=== PATIENT | female | born 1990 | race Caucasian/White ===

== ENCOUNTER 2016-11-06 18:32 | Emergency (ER) | payer BC ==
--- NOTE | 2016-11-06 18:12 | CT ---
EXAMINATION TYPE: CT abdomen pelvis wo con DATE OF EXAM: 11/06/2016 5:43 PM COMPARISON: NONE HISTORY: CT DLP: mGycm Automated exposure control for dose reduction was used. TECHNIQUE: Helical acquisition of images was performed from the lung bases through the pelvis. FINDINGS: Lung bases are clear of consolidation. There is some focal atelectasis in the left lower lobe. There is no pleural effusion. Liver spleen pancreas appear normal. Are clips from cholecystectomy. Bile ducts are not dilated. Ther e is no adrenal mass. Kidneys have normal size. There is mild right-sided hydronephrosis and hydroure ter. There is evidence of a 6 mm calculus in the distal right ureter. Bladder is almost empty. There are multiple bilateral renal calcifications and more on the right side. These measure up to 4 m m. There is no retroperitoneal adenopathy. There is no ascites. Appendix is not seen. There is no sign o f appendicitis. There is no evidence of a pelvic mass. I see no intestinal wall thickening. There are no dilated loops. I see no bony destructive process. There are apparent surgical clips in the right psoas region that could be from appendectomy. IMPRESSION: THERE IS RIGHT-SIDED HYDRONEPHROSIS AND HYDROURETER WITH A SMALL OBSTRUCTING CALCULUS IN THE DISTAL R IGHT URETER. MULTIPLE BILATERAL RENAL CALCIFICATIONS.
[2016-11-06 18:46] VITALS: RESP 18
[2016-11-06] MEDS ORDERED: SODIUM CHLORIDE 0.9% 1,000 ML IV ONE (19:03)
[2016-11-06] MEDS ORDERED: KETOROLAC 30 MG/ML 1 ML VIAL IVP STA (19:03)
--- NOTE | 2016-11-06 19:10 | ED ---
Abdominal Pain HPI - General Chief Complaint: Abdominal Pain Time Seen by Provider: 11/06/16 18:50 Source: patient, RN notes reviewed Mode of arrival: ambulatory Limitations: no limitations - History of Present Illness Initial Comments: Patient is a 26-year-old female with chief complaint of 1 afternoon of right flank pain. Patient reports that she's never had pain like this before. She saw her primary care doctor in the ordered a CT abdomen and pelvis. With it, results she had a positive small obstructing kidney stone in the right ureter instructed her to come to the emergency department. Patient complaining of pain and some nausea. She denies any fever or chills. She denies some blood in her urine. Patient states that she has a past medical history of millimeters disease, abscesses, blood clots. She denies any other associated symptoms aside and sudden onset of right flank pain. - Related Data Home Medications Medication Instructions Recorded Confirmed Citalopram Hydrobromide [CeleXA] 10 mg PO HS 11/06/16 11/06/16 Dicyclomine [Bentyl] 20 mg PO QID 11/06/16 11/06/16 Ibuprofen [Motrin] 600 mg PO Q6HR PRN 11/06/16 11/06/16 Previous Rx's Medication Instructions Recorded Ciprofloxacin HCl [Cipro] 500 mg PO Q12HR #10 tablet 11/06/16 HYDROcodone/APAP 10-325MG [[place] 1 tab PO Q6H PRN #15 tab 11/06/16 10-325] Ketorolac [Toradol] 10 mg PO Q6HR #15 tab 11/06/16 Ondansetron Odt [Zofran Odt] 4 mg PO Q8HR PRN #12 tab 11/06/16 Allergies Allergy/AdvReac Type Severity Reaction Status Date / Time No Known Allergies Allergy Verified 11/06/16 19:06 Review of Systems ROS Statement: Those systems with pertinent positive or pertinent negative responses have been documented in the HPI. ROS Other: All systems not noted in ROS Statement are negative. Past Medical History Past Medical History: Deep Vein Thrombosis (DVT) History of Any Multi-Drug Resistant Organisms: None Reported Past Surgical History: Appendectomy, Cholecystectomy Past Psychological History: Anxiety Smoking Status: Never smoker Past Alcohol Use History: None Reported Past Drug Use History: None Reported General Exam - General Exam Comments Initial Comments: Well-appearing 26-year-old female. No acute distress. Limitations: no limitations General appearance: alert, in no apparent distress Head exam: Present: atraumatic, normocephalic, normal inspection Eye exam: Present: normal appearance, PERRL, EOMI. Absent: scleral icterus, conjunctival injection, periorbital swelling ENT exam: Present: normal exam, mucous membranes moist Neck exam: Present: normal inspection. Absent: tenderness, meningismus, lymphadenopathy Respiratory exam: Present: normal lung sounds bilaterally. Absent: respiratory distress, wheezes, rales, rhonchi, stridor Cardiovascular Exam: Present: regular rate, normal rhythm, normal heart sounds. Absent: systolic murmur, diastolic murmur, rubs, gallop, clicks GI/Abdominal exam: Present: soft, normal bowel sounds. Absent: distended, tenderness, guarding, rebound, rigid Extremities exam: Present: normal inspection, full ROM, normal capillary refill. Absent: tenderness, pedal edema, joint swelling, calf tenderness Back exam: Present: normal inspection, CVA tenderness (R) Neurological exam: Present: alert, oriented X3, CN II-XII intact Psychiatric exam: Present: normal affect, normal mood Skin exam: Present: warm, dry, intact, normal color. Absent: rash Course Vital Signs 11/06/16 11/06/16 18:43 20:29 Temperature 99.2 F 98.9 F Pulse Rate 83 89 Respiratory 18 18 Rate Blood Pressure 133/75 117/70 O2 Sat by Pulse 99 100 Oximetry Medical Decision Making - Medical Decision Making Patient is a 26-year-old female with chief complaint of right flank pain for approximately one day. She was given an outpatient CT and did reveal nephrolithiasis and hydroureter. Patient was then sent to the emergency department to inform her of her results. Patient was given IV Toradol and reports that her pain is much better. She has no sense severe infection and urine was significant for large amount of red blood cells but no white blood cells. Patient will be discharged at this time with pain medications, nausea medication and Cipro antibiotic. Patient advised to follow-up with primary care provider on Wednesday. Patient is agrees with treatment plan states she will comply. - Lab Data Result diagrams: 11/06/16 19:25 11/06/16 19:25 Lab Results 11/06/16 11/06/16 11/06/16 Range/Units 19:25 19:25 19:25 WBC 12.3 H (3.8-10.6) k/uL RBC 4.12 (3.80-5.40) m/uL Hgb 13.0 (11.4-16.0) gm/dL Hct 37.5 (34.0-46.0) % MCV 90.9 (80.0-100.0) fL MCH 31.5 (25.0-35.0) pg MCHC 34.6 (31.0-37.0) g/dL RDW 12.7 (11.5-15.5) % Plt Count 269 (150-450) k/uL Neutrophils % 85 % Lymphocytes % 9 % Monocytes % 4 % Eosinophils % 0 % Basophils % 0 % Neutrophils # 10.4 H (1.3-7.7) k/uL Lymphocytes # 1.1 (1.0-4.8) k/uL Monocytes # 0.5 (0-1.0) k/uL Eosinophils # 0.0 (0-0.7) k/uL Basophils # 0.0 (0-0.2) k/uL Sodium 140 (137-145) mmol/L Potassium 4.0 (3.5-5.1) mmol/L Chloride 105 (98-107) mmol/L Carbon Dioxide 22 (22-30) mmol/L Anion Gap 13 mmol/L BUN 16 (7-17) mg/dL Creatinine 0.86 (0.52-1.04) mg/dL Est GFR (MDRD) Af Amer >60 (>60 ml/min/1.73 sqM) Est GFR (MDRD) Non-Af >60 (>60 ml/min/1.73 sqM) Glucose 96 (74-99) mg/dL Calcium 9.2 (8.4-10.2) mg/dL Urine Color Red Urine Appearance Turbid H (Clear) Urine pH 5.5 (5.0-8.0) Ur Specific [place] 1.018 (1.001-1.035) Urine Protein 1+ H (Negative) Urine Glucose (UA) Negative (Negative) Urine Ketones Trace H (Negative) Urine Blood Large H (Negative) Urine Nitrite Negative (Negative) Urine Bilirubin Negative (Negative) Urine Urobilinogen <2.0 (<2.0) mg/dL Ur Leukocyte Esterase Negative (Negative) Urine RBC 142 H (0-5) /hpf Ur Squamous Epith Cells 3 (0-4) /hpf Urine Mucus Moderate H (None) /hpf - Radiology Data Radiology results: report reviewed CT abdomen and pelvis does show right-sided for ureter with mild hydronephrosis. Multiple bilateral renal stones. Disposition Clinical Impression: Ureteral stone with hydronephrosis Disposition: HOME SELF-CARE Condition: Good Instructions: Kidney Stones (ED) Additional Instructions: Advised to follow up with urologist. Patient needs to return to emergency room if any worsening signs or symptoms occur. Follow-up with primary care provider within the next 2-3 days. Take prescribed medications as directed. Prescriptions: Ciprofloxacin HCl [Cipro] 500 mg PO Q12HR #10 tablet HYDROcodone/APAP 10-325MG [[place] 10-325] 1 tab PO Q6H PRN #15 tab PRN Reason: Pain Ketorolac [Toradol] 10 mg PO Q6HR #15 tab Ondansetron Odt [Zofran Odt] 4 mg PO Q8HR PRN #12 tab PRN Reason: Nausea Referrals: Andrés Shannon DO [Primary Care Provider] - 1-2 days Time of Disposition: 20:13
[2016-11-06 19:36] LABS: Basophils % (A) 0 %; CH 31.5; CHCM 34.8; Eosinophils % (A) 0 %; HCT 37.5 % (34.0-46.0); Luc # (Auto) 0.18; Luc % (Auto) 1; Lymphocytes # (A) 1.1 k/uL (1.0-4.8); Lymphocytes % (A) 9 %; MCH 31.5 pg (25.0-35.0); MCHC 34.6 g/dL (31.0-37.0); MCV 90.9 fL (80.0-100.0); Mean Platelet Volume 7.9; Monocytes # (A) 0.5 k/uL (0-1.0); Monocytes % (A) 4 %; Neutrophils # (A) 10.4 k/uL (1.3-7.7); Neutrophils % (A) 85 %; RBC 4.12 m/uL (3.80-5.40); RDW 12.7 % (11.5-15.5); WBC 12.3 k/uL (3.8-10.6); WBC (Perox) 12.12
[2016-11-06 19:39] LABS: Appearance,Urine Turbid (Clear); Bilirubin,Urine Negative (Negative); Glucose,Urine (UA) Negative (Negative); Ketones,Urine Trace (Negative); Leukocyte Esterase,Urine Negative (Negative); Mucus,Urine Moderate /hpf; Nitrite,Urine Negative (Negative); PH, Urine 5.5 (5.0-8.0); Particle Count 80678; Protein,Urine 1+ (Negative); RBC,Urine 142 /hpf (0-5); Specific Gravity,Urine 1.018 (1.001-1.035); Squamous Epithelial Cell,Urine 3 /hpf (0-4); UA Billing (MACRO vs. MICRO) MICRO; Urobilinogen,Urine <2.0 mg/dL (<2.0)
[2016-11-06 19:44] LABS: Anion Gap 13 mmol/L; Blood Urea Nitrogen 16 mg/dL (7-17); Calcium 9.2 mg/dL (8.4-10.2); Carbon Dioxide 22 mmol/L (22-30); Chloride 105 mmol/L (98-107); Glucose 96 mg/dL (74-99); Non-African American GFR(MDRD) >60 (>60 ml/min/1.73 sqM); Sodium 140 mmol/L (137-145)
[2016-11-06] MEDS ORDERED: ONDANSETRON 4 MG ODT STARTER PACK 2 TAB BTL PO STA (20:11)
[2016-11-06 20:34] VITALS: BP 117/70; PULSE 89; TEMP 98.9
== END 2016-11-06 20:37 | disposition home or self-care (01) ==
LOC: EC 18:32
DX: N13.2 Hydronephrosis with renal and ureteral calculous obstruction (principal); F41.9 Anxiety disorder, unspecified; Z90.49 Acquired absence of other specified parts of digestive tract; Z79.899 Other long term (current) drug therapy
CPT/HCPCS: 99284 ×2; 96374 ×2; 96361 ×2; 36415; 80048; 85025; 81001; 74176; J1885; S0119

== ENCOUNTER → 2019-07-12 | Outpatient (CLI) | payer BC ==
--- NOTE | 2019-07-12 09:20 | US ---
EXAMINATION TYPE: US pelvic complete DATE OF EXAM: 07/12/2019 COMPARISON: CT 2017 CLINICAL HISTORY: N76.1 Subacute and chronic vaginitis, R10.2 Pelvic. Intermittent pelvic pain x coup le months, abnormal discharge, 0 TECHNIQUE: . Transabdominal sonographic images of the pelvis were acquired. Date of LMP: 06/25/2019 EXAM MEASUREMENTS: Uterus: 8.3 x 3.1 x 4.1 cm Endometrial Stripe: 0.5 cm Right Ovary: 2.7 x 1.8 x 2.3 cm Left Ovary: 3.5 x 1.8 x 3.3 cm 1. Uterus: anteverted 2. Endometrium: measures thin for patient's LMP 3. Right Ovary: wnl 4. Left Ovary: wnl 5. Bilateral Adnexa: wnl 6. Posterior cul-de-sac: wnl IMPRESSION: Thin endometrium for early secretory phase of menstrual cycle otherwise unremarkable stud y.
--- NOTE | 2019-07-12 09:27 | US ---
EXAMINATION TYPE: US abdomen complete DATE OF EXAM: 07/12/2019 COMPARISON: CT 2017, US 2012 CLINICAL HISTORY: N76.1 Subacute and chronic vaginitis, R10.2 Pelvic. Bilateral flank and back pain x couple months, history of cholecystectomy EXAM MEASUREMENTS: Liver Length: 13.7 cm CBD: 0.6 cm Spleen: 10.1 cm Right Kidney: 11.0 x 4.8 x 4.9 cm Left Kidney: 10.3 x 6.3 x 5.0 cm Pancreas: visualized portions wnl, limited by overlying midline bowel gas Liver: wnl Gallbladder: surgically absent Evidence for sonographic Briseno's sign: no CBD: visualized portions wnl, limited by overlying bowel gas Spleen: wnl Right Kidney: multiple small echogenic foci scattered throughout with largest measuring 0.4cm Left Kidney: multiple small echogenic foci scattered throughout with largest measuring 0.4cm Upper IVC: wnl Abd Aorta: wnl The visualized liver is slightly heterogeneous. The intrahepatic portion of the IVC and visualized a bdominal aorta are within normal limits. Gallbladder noted surgically absent. Common bile duct is un remarkable. The visualized portions of the pancreas are heterogeneous without suspicious mass or bryon lance dilatation. The spleen is unremarkable. Kidneys are symmetric and free of hydronephrosis. No r enal lesions are seen. IMPRESSION: Redemonstration bilateral nonobstructing renal calculi up to 4 mm in size on ultrasound w ithout hydronephrosis noted.
== END | disposition home or self-care (01) ==
LOC: RADUSWWP 06:56
PROVIDERS: ATTEND Family Medicine
DX: N20.0 Calculus of kidney (principal); N76.1 Subacute and chronic vaginitis; R10.2 Pelvic and perineal pain; R35.0 Frequency of micturition
CPT/HCPCS: 76700; 76856

== ENCOUNTER → 2020-02-16 | Outpatient (CLI) | payer BC ==
--- NOTE | 2020-02-17 12:06 | US ---
EXAMINATION TYPE: US kidneys/renal and bladder DATE OF EXAM: 02/16/2020 COMPARISON: 07/12/2019 ultrasound CLINICAL HISTORY: Hematuria R31.9. EXAM MEASUREMENTS: Right Kidney: 10.6 x 4.2 x 4.6 cm Left Kidney: 10.7 x 5.8 x 4.6 cm Right Kidney: scattered echogenic foci largest measuring 0.4cm Left Kidney: scattered echogenic foci largest measuring 0.4cm Bladder: wnl Bilateral Jets seen: Yes No significant interval changes IMPRESSION: 1. Bilateral nonobstructing renal stones.
== END | disposition home or self-care (01) ==
LOC: RADUSWWP 15:19
PROVIDERS: ATTEND Family Medicine
DX: N20.0 Calculus of kidney (principal); R10.2 Pelvic and perineal pain
CPT/HCPCS: 76770

== ENCOUNTER → 2020-02-21 | Outpatient (CLI) | payer BC ==
[2020-02-21 18:35] LABS: African American GFR (CKD) 137.6 (60.0-200.0); Anion Gap 9.6 mmol/L (4.00-12.00); BUN/Creat Ratio 17.14 Ratio (12.00-20.00); Calcium 9.5 mg/dL (8.7-10.3); Carbon Dioxide 25.4 mmol/L (21.6-31.8); Non-African American GFR(CKD) 118.7 (60.0-200.0); Potassium 4.3 mmol/L (3.5-5.5)
== END | disposition home or self-care (01) ==
LOC: LABWHC1 13:06
PROVIDERS: ATTEND Physician Assistant Medical
DX: R31.9 Hematuria, unspecified (principal)
CPT/HCPCS: 36415; 80048

== ENCOUNTER → 2020-09-18 | Outpatient (CLI) | payer BC ==
[2020-09-18 22:48] LABS: Basophils # (A) 0.03 X 10*3/uL (0.00-0.10); Basophils % (A) 0.4 %; Eosinophils # (A) 0.08 X 10*3/uL (0.04-0.35); HCT 40.8 % (37.2-46.3); HGB 13.5 g/dL (12.0-15.0); Lymphocytes # (A) 2.18 X 10*3/uL (0.90-5.00); Lymphocytes % (A) 26.4 %; MCH 30.4 pg (27.0-32.0); MCHC 33.1 g/dL (32.0-37.0); MCV 91.9 fL (80.0-97.0); Mean Platelet Volume 10.7 fL (9.5-12.2); Monocytes % (A) 7.3 %; Neutrophils # (A) 5.32 X 10*3/uL (1.80-7.70); Neutrophils % (A) 64.4 %; Platelet Count 336 X 10*3/uL (140-440); RBC 4.44 X 10*6/uL (4.10-5.20); RDW 12.2 % (11.5-14.5); WBC 8.25 X 10*3/uL (4.50-10.00)
[2020-09-19 00:27] LABS: Gliadin AB IgA, Deaminated NEGATIVE (NEGATIVE); Gliadin AB IgA, Unit 0.8 U/mL; Gliadin AB IgG, Deaminated NEGATIVE (NEGATIVE)
[2020-09-19 15:20] LABS: APTT 44 Sec(s) (<43); APTT 1:1 Mix 38 Sec(s) (<43); Dilute Russell Viper Venom 43 Sec(s) (<44)
== END | disposition home or self-care (01) ==
LOC: LABWHC1 16:00
PROVIDERS: ATTEND Allergy & Immunology
DX: K52.9 Noninfective gastroenteritis and colitis, unspecified (principal)
CPT/HCPCS: 36415; 82784; 83516; 85025; 85613; 85730; 85732; 86038

== ENCOUNTER → 2020-09-30 | Outpatient (CLI) | payer BC ==
--- NOTE | 2020-10-01 08:55 | US ---
EXAMINATION TYPE: US thyroid st tissue head/neck DATE OF EXAM: 09/30/2020 COMPARISON: NONE CLINICAL HISTORY: E04.9 NONTOXIC GOITER. sensation of something in throat, no previous nodules GLAND SIZE: Right Lobe: 5.2 x 1.3 x 1.3 cm Overall Parenchyma: homogenous Left Lobe: 4.1 x 1.1 x 1.5cm Overall Parenchyma: homogeneous Isthmus Thickness: 0.4 cm NODULES RIGHT: # of nodules measured on right: 0 LEFT: # of nodules measured on left: 0 ISTHMUS: # of nodules measured in the isthmus: 0 Bilateral neck scanned, no evidence of lymphadenopathy. IMPRESSION: 1. Normal thyroid ultrasound
== END | disposition home or self-care (01) ==
LOC: RADUSWWP 16:12
PROVIDERS: ATTEND Allergy & Immunology
DX: E04.9 Nontoxic goiter, unspecified (principal)
CPT/HCPCS: 76536

== ENCOUNTER 2023-02-15 18:59 | Emergency (ER) | payer SELFPAY ==
[2023-02-15 19:28] VITALS: TEMP 97.9
--- NOTE | 2023-02-15 19:41 | XR ---
EXAMINATION TYPE: XR ankle complete LT DATE OF EXAM: 02/15/2023 7:36 PM INDICATION: Patient age:Female; 32 years old; Reason for study: left ankle pain; COMPARISON: None TECHNIQUE: The left ankle is imaged in frontal, lateral and oblique projections. FINDINGS: There is no evidence of acute osseous pathology. The joint spaces are well-preserved without evidenc e of subluxation or dislocation. Kager's fat pad is intact. Mild soft tissue swelling around the ankl e. No radiopaque foreign bodies are identified. IMPRESSION: 1. No evidence of acute fracture. 2. Subcutaneous swelling around the ankle likely secondary to underlying soft tissue injury.
--- NOTE | 2023-02-15 21:10 | ED ---
General Adult HPI - General Chief complaint: Extremity Injury, Lower Stated complaint: L Ankle Injury Time Seen by Provider: 02/15/23 20:27 Source: patient Mode of arrival: wheelchair Limitations: no limitations - History of Present Illness Initial comments: 32-year-old female presents emergency department chief complaint of left ankle injury. Patient states that she was walking on her deck earlier today when she twisted her ankle. She states that she inverted the ankle and is having lateral ankle swelling and pain. She states that she has not tried to walk on it. She states that she did not take anything for pain. Patient has no significant past medical history. No known medication ALLERGIES. - Related Data Home Medications Medication Instructions Recorded Confirmed Citalopram Hydrobromide [CeleXA] 10 mg PO HS 11/06/16 11/06/16 Dicyclomine [Bentyl] 20 mg PO QID 11/06/16 11/06/16 Ibuprofen [Motrin] 600 mg PO Q6HR PRN 11/06/16 11/06/16 Previous Rx's Medication Instructions Recorded Ciprofloxacin HCl [Cipro] 500 mg PO Q12HR #10 tablet 11/06/16 HYDROcodone/APAP 10-325MG [[place] 1 tab PO Q6H PRN #15 tab 11/06/16 10-325] Ketorolac [Toradol] 10 mg PO Q6HR #15 tab 11/06/16 Ondansetron Odt [Zofran Odt] 4 mg PO Q8HR PRN #12 tab 11/06/16 Allergies Allergy/AdvReac Type Severity Reaction Status Date / Time No Known Allergies Allergy Verified 02/15/23 19:26 Review of Systems ROS Statement: Those systems with pertinent positive or pertinent negative responses have been documented in the HPI. ROS Other: All systems not noted in ROS Statement are negative. Past Medical History Past Medical History: Deep Vein Thrombosis (DVT) History of Any Multi-Drug Resistant Organisms: None Reported Past Surgical History: Appendectomy, Cholecystectomy Past Psychological History: Anxiety Smoking Status: Never smoker Past Alcohol Use History: Occasional Past Drug Use History: None Reported General Exam Limitations: no limitations General appearance: alert, in no apparent distress Head exam: Present: atraumatic, normocephalic, normal inspection Eye exam: Present: normal appearance ENT exam: Present: normal exam, mucous membranes moist Neck exam: Present: normal inspection. Absent: tenderness, meningismus, lymphadenopathy Respiratory exam: Present: normal lung sounds bilaterally. Absent: respiratory distress, wheezes, rales, rhonchi, stridor Cardiovascular Exam: Present: regular rate, normal rhythm, normal heart sounds. Absent: systolic murmur, diastolic murmur, rubs, gallop, clicks Extremities exam: Present: tenderness, normal capillary refill, other (DP and PT pulses 2+, lateral left ankle soft tissue swelling). Absent: full ROM (mild decrease due to swelling) Back exam: Present: normal inspection Neurological exam: Present: alert, oriented X3 Psychiatric exam: Present: normal affect, normal mood Skin exam: Present: warm, dry, intact, normal color. Absent: rash Course Vital Signs 02/15/23 02/15/23 19:26 21:18 Temperature 97.9 F Pulse Rate 92 82 Respiratory 18 20 Rate Blood Pressure 102/62 113/72 O2 Sat by Pulse 100 98 Oximetry Medical Decision Making - Medical Decision Making Was pt. sent in by a medical professional or institution (, PA, SIDEROGRAPHER, urgent care, hospital, or fci...) When possible be specific @ -No Did you speak to anyone other than the patient for history (EMS, parent, family, police, friend...)? What history was obtained from this source @ -No Did you review nursing and triage notes (agree or disagree)? Why? @ -I reviewed and agree with nursing and triage notes Were old charts reviewed (outside hosp., previous admission, EMS record, old EKG, old radiological studies, urgent care reports/EKG's, fci records)? Report findings @ -No old charts were reviewed Differential Diagnosis (chest pain, altered mental status, abdominal pain women, abdominal pain men, vaginal bleeding, weakness, fever, dyspnea, syncope, headache, dizziness, GI bleed, back pain, seizure, CVA, palpatations, mental health, musculoskeletal)? @ -Differential Musculoskeletal Muscular strain, contusion, ligament sprain, fracture, arthritis, septic arthritis, bursitis, cellulitis, muscle spasm, nerve compression, DVT, arterial occlusion, herpes zoster, electrolyte abnormality, tumor.... This is not meant to be in all inclusive list EKG interpreted by me (3pts min.). @ -None X-rays interpreted by me (1pt min.). @ -XR left ankle show no evidence for acute fracture CT interpreted by me (1pt min.). @ -None done U/S interpreted by me (1pt. min.). @ -None done What testing was considered but not performed or refused? (CT, X-rays, U/S, labs)? Why? @ -None What meds were considered but not given or refused? Why? @ -None Did you discuss the management of the patient with other professionals (professionals i.e. Dr., PA, SIDEROGRAPHER, lab, RT, psych nurse, social media senior associate, fullerette, teacher, sustainability officer, embedded case manager)? Give summary @ -No Was smoking cessation discussed for >3mins.? @ -No Was critical care preformed (if so, how long)? @ -No Were there social determinants of health that impacted care today? How? (Homelessness, low income, unemployed, alcoholism, drug addiction, transportation, low edu. Level, literacy, decrease access to med. care, shelter, rehab)? @ -No Was there de-escalation of care discussed even if they declined (Discuss DNR or withdrawal of care, Hospice)? DNR status @ -No What co-morbidities impacted this encounter? (DM, HTN, Smoking, COPD, CAD, Cancer, CVA, ARF, Chemo, Hep., AIDS, mental health diagnosis, sleep apnea, morbid obesity)? @ -None Was patient admitted / discharged? Hospital course, mention meds given and route, prescriptions, significant lab abnormalities, going to OR and other pertinent info. @ -discharged. Patient presented to the emergency department for left ankle injury. XR obtained showed no evidence for acute fracture. Patient was placed in an aircast. Ortho follow up given if patient does not have improvement in symptoms. Advised to alternate tylenol and motrin as needed. Case discussed with my attending, Dr. Dsouza Undiagnosed new problem with uncertain prognosis? @ -No Drug Therapy requiring intensive monitoring for toxicity (Heparin, Nitro, Insulin, Cardizem)? @ -No Were any procedures done? @ -No Diagnosis/symptom? @ -ankle sprain Acute, or Chronic, or Acute on Chronic? @ -acute Uncomplicated (without systemic symptoms) or Complicated (systemic symptoms)? @ -uncomplicated Side effects of treatment? @ -No Exacerbation, Progression, or Severe Exacerbation? @ -No Poses a threat to life or bodily function? How? (Chest pain, [place], [place], pneumonia, PE, COPD, DKA, ARF, appy, cholecystitis, CVA, Diverticulitis, Homicidal, Suicidal, threat to staff... and all critical care pts) @ -No Disposition Clinical Impression: Ankle sprain Disposition: HOME SELF-CARE Condition: Stable Instructions (If sedation given, give patient instructions): Ankle Sprain (ED) Additional Instructions: Take Tylenol and Motrin as needed for pain. Please return to the emergency department for new or worsening symptoms. Is patient prescribed a controlled substance at d/c from ED?: No Referrals: Andrés Shannon DO [Primary Care Provider] - 1-2 days Melanie Hampton DO [Doctor of Osteopathic Medicine] - 1-2 days Time of Disposition: 21:09
[2023-02-15 21:20] VITALS: BP 113/72; PULSE 82; RESP 20
== END 2023-02-15 21:18 | disposition home or self-care (01) ==
LOC: EC 18:59
DX: S93.402A Sprain of unspecified ligament of left ankle, initial encounter (principal); Z86.59 Personal history of other mental and behavioral disorders; X58.XXXA Exposure to other specified factors, initial encounter; Y93.01 Activity, walking, marching and hiking
CPT/HCPCS: 99283

== ENCOUNTER → 2023-09-17 | Outpatient (CLI) | payer OTHER ==
--- NOTE | 2023-09-24 13:31 | EST ---
EXERCISE STRESS The patient was monitored for 48 hours. FINDINGS: Baseline rhythm is a sinus mechanism. The average rate 84 beats per minute, minimum 49, maximum 148 beats per minute. Ventricular ectopic activity was present in form of rare single PVCs. Supraventricular ectopic activity was present in form of rare single PACs. Symptoms of flutter, rushing flutter did not correlate with any significant dysrhythmia. MMKRISTIL / ANGELICAN: [id number] /
== END | disposition home or self-care (01) ==
LOC: RADECHMAIN 08:10
PROVIDERS: ATTEND Family Medicine
DX: R00.2 Palpitations (principal); R07.89 Other chest pain
CPT/HCPCS: 93225; 93226

== ENCOUNTER → 2023-11-16 | Outpatient (CLI) | payer OTHER ==
[2023-11-16 10:43] VITALS: BP 114/76; PULSE 87; RESP 17; TEMP 98.1
--- NOTE | 2023-11-16 11:15 | P.HPOB ---
History of Present Illness H&P Date: 11/16/23 Chief Complaint: The patient is here for her routine gynecologic exam and ma mmogram. Thisi s a 33-year-old G0 with an LMP of 10/20/2023. The patient is here to establish with this office. It has been about 3 years since her last pelvic exam. She is in a new relationship within the last few months and has been using condoms. She is interested in restarting control pills. She has taken control pills in the past without problems, however, there was one control pill that she had 2 periods per month, but does not know the name of it. She is complaining of a slight vaginal discharge which is thicker and whitish. She denies vaginal odor or genital itching or burning. She has had bacterial vaginosis in the past and thinks she may have this. Review of Systems The patient's weight has been stable over the last year. She denies respiratory, cardiac, or G.I. problems. 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 Past FREIGHT AGENT history: Chlamydia approximately 2013. History of Any Multi-Drug Resistant Organisms: None Reported Past Surgical History: Appendectomy, Cholecystectomy Additional Past Surgical History / Comment(s): wisdom teeth. Chest tube. Past Psychological History: ADD/ADHD, Anxiety Smoking Status: Never smoker Past Alcohol Use History: Occasional (3 drinks per month.) Past Drug Use History: None Reported Additional History: She is single and has been with her boyfriend since 2023 and they do not live together. She has had about 9 sexual partners in her lifetime. She is currently attending nursing school. - Past Family History Mother Family Medical History: Diabetes Mellitus Additional Family Medical History / Comment(s): ovarian cysts. Father Family Medical History: Cancer, Liver Disease Additional Family Medical History / Comment(s): alcohol-related liver disease. She is uncertain as to the type of cancer he had. Sister(s) Additional Family Medical History / Comment(s): ovarian cysts. Medications and Allergies Home Medications Medication Instructions Recorded Confirmed Type Escitalopram [Lexapro] 10 mg PO DAILY 11/16/23 11/16/23 History buPROPion SR [Wellbutrin SR] 150 mg PO DAILY 11/16/23 11/16/23 History Allergies Allergy/AdvReac Type Severity Reaction Status Date / Time No Known Allergies Allergy Verified 02/15/23 19:26 Exam Vital Signs Temp Pulse Resp BP Pulse Ox 11/16/23 10:09 98.1 F 87 17 114/76 99 Intake and Output 11/15/23 11/16/23 11/16/23 22:59 06:59 14:59 Other: Weight 102.058 kg height 5 feet 3 inches, weight 225 pounds, BMI 39.9. This is a well-developed well-nourished heavyset white female who is alert and oriented times 3 in no acute distress. HEENT: Within normal limits. NECK: Supple without mass or thyromegaly. CHEST AND LUNGS: Clear to auscultation. HEART: Regular rate and rhythm. BREASTS: Are without mass or discharge. AXILLARY EXAM: Negative for adenopathy. BACK: Negative for CVA tenderness. ABDOMEN: Soft, nontender, without palpable masses. PELVIC EXAM: Normal external genitalia. Cervix and vagina appear normal . There is no unusual discharge. No vaginal odor is noted. There is no cervical motion tenderness. There is no evidence of prolapse. The uterus is midposition, nongravid size and nontender. There are no palpable adnexal masses or tenderness. RECTAL EXAM: negative for mass or tenderness. EXTREMITIES: Nontender. IMPRESSION: 1. 33-year-old female with normal gynecologic exam who is using condoms for control. 2. the patient is requesting oral contraception. 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 This was related to a pharyngeal abscess. 4.slight vaginal discharge noted by the patient without significant physical findings on exam today. PLAN: 1. Pap smear cotest was performed. 2. Self breast awareness was discussed with the patient. We have also discussed symptoms associated with inflammatory breast cancer. 3. affirm vaginitis panel was obtained from the vagina. 4.GC and Chlamydia testing was obtained from the cervix. 5. we have had a long discussion regarding oral contraception and increased risk for blood clots with oral contraception. I will research whether she is a candidate for oral contraception given the history of septic thrombophlebitis of the jugular vein as a teenager. I think this has more to do with her pharyngeal abscess than a predisposition for thrombosis. We have also discussed possibly using progestin only contraception. She understands that this may be less effective than combination oral contraception. I have recommended that she continue to use condoms. 6. I also recommended that she take a daily multivitamin which may decrease the risk for defects if she doesn't . 7. STD prevention was discussed. I stressed importance of limiting sexual partners and using condoms. 8. She was advised to return in one year for her annual well woman exam.
--- NOTE | 2023-11-16 16:46 | P.PN ---
Progress Note - Text Progress Note Date: 11/16/23 I have done some research on Lemierre's syndrome, which is a septic thrombophlebitis involving the internal jugular vein related to a bacterial pharyngitis or tonsillitis. She had this at age 19. She said she was on an anticoagulant for about 3 months. she has not had any abnormal blood clots since then including when she was on commendation oral contraception for about 3 years. I was not able to find any significant literature discussing oral contraception use after this type of thrombophlebitis. It is difficult to say whether this history will significantly increase her risk with combination oral contraceptive use. I feel that it would be most prudent to use a progestin only oral contraceptive pill such as Noemí. This would hopefully minimize the blood clot risk by not using an estrogen containing oral contraceptive. She understands that this may not be as effective as commendation oral contraception, but since she does not want to get at this time, I do think it would be beneficial to start some form of contraception. She is declining IUD usage. I have recommended that she start the medication on the first day for next normal menstrual period. I have also recommended that she use a backup method such as condoms. The electronic prescription will be sent to [facility] pharmacy in [place]. I have stressed the importance of taking it daily and I have recommended that she take it prior to dinner each day. I have also recommended that she take a daily multivitamin.
[2023-11-17 13:09] LABS: N. gonorrhoeae,PCR Negative (Negative)
[2023-11-17 13:15] LABS: C. trachomatis,PCR Negative (Negative)
[2023-11-17 15:16] LABS: Gardnerella Positive (Negative); Trichomonas Negative (Negative)
== END ==
LOC: WWCWWP 09:38
PROVIDERS: ATTEND Obstetrics & Gynecology
DX: Z01.411 Encounter for gynecological examination (general) (routine) with abnormal findings (principal); N89.8 Other specified noninflammatory disorders of vagina; Z86.19 Personal history of other infectious and parasitic diseases
CPT/HCPCS: 87480; 87491; 87510; 87591; 87660

== ENCOUNTER → 2024-01-21 | Outpatient (CLI) | payer OTHER ==
--- NOTE | 2024-01-21 14:35 | US ---
EXAMINATION TYPE: US kidneys/renal and bladder DATE OF EXAM: 01/21/2024 COMPARISON: 02/16/20 CLINICAL INDICATION: Female, 33 years old with history of R30.0 LEFT LOWER QUAD PAIN; LLQ pain. Hx of renal stones EXAM MEASUREMENTS: Right Kidney: 10.8 x 6.7 x 5.9 cm Left Kidney: 10.6 x 5.2 x 6.1 cm Right Kidney: A few scattered echogenic areas seen with post shadowing. Largest = 0.7cm. No hydroneph rosis seen Left Kidney: 2 echogenic areas seen largest measuring 0.5cm. No hydronephrosis seen Bladder: wnl Bilateral Jets seen: Yes IMPRESSION: Suggestion of a few bilateral nonobstructive renal calculi measuring up to 7 mm. No hydronephrosis.
== END | disposition home or self-care (01) ==
LOC: RADUSWWP 13:46
PROVIDERS: ATTEND Family Medicine
DX: N20.0 Calculus of kidney (principal); R10.32 Left lower quadrant pain; R30.0 Dysuria
CPT/HCPCS: 76770